=== PATIENT | male | born 1940 | race Caucasian/White ===

== ENCOUNTER 2017-10-13 06:12 | Day surgery (SDC) | payer OTHER ==
[2017-10-11 12:52] LABS: Basophils # (auto) 0.1 uL; Basophils % (auto) 1.1 % (0.0-2.0); Eosinophils # (auto) 0.6 uL; Eosinophils % (auto) 5.5 % (0.0-7.0); Hematocrit 42.2 % (41.0-53.0); Hemoglobin 13.9 g/dL (13.5-17.5); Lymphocytes # (auto) 3.3 uL; Lymphocytes % (auto) 31.3 % (10.0-50.0); Mean Corpuscular Hemoglobin 30.3 pg (28.0-32.0); Mean Corpuscular Volume 91.9 fL (80.0-100.0); Monocytes # (auto) 0.8 uL; Monocytes % (auto) 7.4 % (0.0-12.0); Neutrophils # (auto) 5.7 uL; Neutrophils % (auto) 54.7 % (37.0-80.0); Nucleated Red Blood Cells % 0.2 %; Platelet Count (auto) 267 10^3/uL (140-450); Red Blood Cells 4.59 10^6/uL (4.5-5.90); Red Cell Distribution Width 13.6 % (11.8-14.3); White Blood Cell 10.5 10^3/uL (4.4-10.8)
[2017-10-11 12:54] LABS: Urine Bacteria NONE SEEN /hpf (None Seen); Urine Blood Negative /uL (Negative); Urine Specific Gravity 1.011 (1.001-1.035); Urine WBC <1 /hpf (0 - 3)
[2017-10-11 13:10] LABS: Partial Thromboplastin Time 26.5 sec (22.64-33.71); Prothrombin Time 10.9 sec (9.37-12.3)
[2017-10-11 13:21] LABS: Albumin 4.2 g/dL (3.4-5.0); BUN/Creatinine Ratio 23.3; Bilirubin, Total 0.8 mg/dL (0.2-1.0); Calcium 9.5 mg/dL (8.5-10.1); Potassium 4.9 mmol/L (3.5-5.1); Total Protein 8.2 g/dL (6.4-8.2)
[~2017-10-13] VITALS: Ht 188 cm; Wt 90.7 kg
[~2017-10-13 06:12] MED LIST: ATOR1TAB PO; MELO1TAB73 PO; METO-159 PO; TRIA75TA55 PO
[2017-10-13] MEDS ORDERED: LIDOCAINE W/ EPINEPHRINE 2% INJ 20ML VIAL ONE (06:54)
[2017-10-13] MEDS ORDERED: IOHEXOL 180 MG/ML 20ML VIAL IJ ONE (06:54)
[2017-10-13] MEDS ORDERED: IOHEXOL 300 MG/ML 100ML BOTTLE IJ ONE (06:55)
[2017-10-13] MEDS ORDERED: ceFAZolin 1GM/100ML 100 ML IV ONE (08:32)
[2017-10-13] MEDS ORDERED: MIDAZOLAM HCL 1MG/1ML-2 ML VIAL ONE (09:27)
[2017-10-13] MEDS ORDERED: fentaNYL CITRATE 100 MCG/2 ML VL ONE (09:31)
[2017-10-13] MEDS ORDERED: MORPHINE SULFATE 8mg/ml INJ SDV IV PRN (09:45)
[2017-10-13] MEDS ORDERED: NALOXONE HCL 0.4 MG/ML VIAL IV PRN (09:45)
[2017-10-13] MEDS ORDERED: ONDANSETRON HCL 4 MG/2 ML VIAL IV ONE (09:45)
[2017-10-13] MEDS ORDERED: ePHEDrine SULFATE 50 MG/ML AMP ONE (09:49)
[2017-10-13] MEDS ORDERED: LIDOCAINE HCL 100 MG/5ML (2%) SYRG INJ IV ONE (09:49)
[2017-10-13] MEDS ORDERED: PROPOFOL 10 MG/ML 20 ML IV ONE (09:53)
[2017-10-13 11:03] VITALS: BP 135/78
== END 2017-10-13 11:12 | disposition home or self-care (01) ==
LOC: SUR 06:12
PROVIDERS: ATTEND Anesthesiology Pain Medicine
DX: M48.061 Spinal stenosis, lumbar region without neurogenic claudication (principal); I25.10 Atherosclerotic heart disease of native coronary artery without angina pectoris; Z95.1 Presence of aortocoronary bypass graft; I10 Essential (primary) hypertension; D64.9 Anemia, unspecified; M06.9 Rheumatoid arthritis, unspecified
CPT/HCPCS: 36415; 63030; 72100; 76000; 80053; 81001; 85025; 85610; 85730; A4550; J0690; J2250; J2704; J3010; Q9965; Q9967